=== PATIENT | female | born 1950 | race Caucasian/White ===

== ENCOUNTER → 2017-01-15 | Outpatient (CLI) | payer MEDICARE ==
[~2017-01-15] MED LIST: ASPI-496 PO; ATOR40TA PO; GABA300C10 PO; IBUP800T PO; LEVO75TA5 PO; TYLENOL PO
[2017-01-15 13:46] LABS: BLOOD UREA NITROGEN 18 mg/dL (7-18)
== END | disposition home or self-care (01) ==
LOC: EDSEX 12:24 → STAR 12:24
PROVIDERS: ATTEND Neurological Surgery
DX: Z01.818 Encounter for other preprocedural examination (principal); R94.31 Abnormal electrocardiogram [ECG] [EKG]; J98.4 Other disorders of lung; M48.06 Spinal stenosis, lumbar region
CPT/HCPCS: 36415; 71020; 80048; 85025; 85610; 85730; 93005

== ENCOUNTER 2017-01-23 09:35 | Observation (INO) | payer MEDICARE ==
[~2017-01-23] VITALS: Ht 157.5 cm; Wt 60.7 kg
[~2017-01-23 09:35] MED LIST changes: +BACITRACIN 50,000 UNIT ONE; +BACITRACIN OINT 500U/GM, 15 GM ONE; +BUPIVACAINE/PF 0.5% ONE; +EPINEPHRINE 1 MG/ML, 1ML ONE; +THROMBIN 5,000 UNIT VIAL TP ONE
[2017-01-23 09:53] VITALS: BP 144/84
[2017-01-23] MEDS: LACTATED RINGERS 1,000 ML IV SCH (10:06)
[2017-01-23] MEDS ORDERED: FENTANYL PF 250 MCG/5ML ONE (12:42)
[2017-01-23] MEDS ORDERED: SUCCINYLCHOLINE 20 MG/ML, 10ML ONE (12:57)
[2017-01-23] MEDS ORDERED: ROCURONIUM 10 MG/ML ONE (12:57)
[2017-01-23] MEDS ORDERED: METOCLOPRAMIDE 5 MG/ML, 2ML ONE (12:57)
[2017-01-23] MEDS ORDERED: NEOSTIGMINE 1 MG/ML, 10ML ONE (12:57)
[2017-01-23] MEDS ORDERED: DEXAMETHASONE 4 MG/ML, 1ML ONE (12:57)
[2017-01-23] MEDS ORDERED: ONDANSETRON 2MG/ML, 2ML ONE (12:57)
[2017-01-23] MEDS ORDERED: LIDOCAINE 1%, 10ML ONE (12:57)
[2017-01-23] MEDS ORDERED: GLYCOPYRROLATE 0.2MG/1ML ONE (12:57)
[2017-01-23] MEDS ORDERED: CEFAZOLIN 1,000 MG ONE (12:57)
[2017-01-23] MEDS ORDERED: PROPOFOL 10 MG/ML, 50ML ONE (12:57)
[2017-01-23] MEDS ORDERED: MIDAZOLAM 1 MG/ML, 2ML IV PRN (13:00)
[2017-01-23] MEDS ORDERED: HYDROmorphone 1 MG/ML, 1ML IV PRN (13:00)
[2017-01-23] MEDS ORDERED: hydrALAzine 20 MG/ML, 1ML IV PRN (13:00)
[2017-01-23] MEDS ORDERED: OXYcodone 5 MG/5 ML ORAL.SOL UDC PO PRN (13:00)
[2017-01-23] MEDS ORDERED: MEPERIDINE/PF 25MG/0.5ML IVPush PRN (13:00)
[2017-01-23] MEDS ORDERED: PROMETHAZINE 25 MG/ML, 1ML IV PRN (13:00)
[2017-01-23] MEDS ORDERED: ONDANSETRON 2MG/ML, 2ML IVPush PRN (13:00)
[2017-01-23] MEDS ORDERED: LABETALOL 5MG/ML, 20ML IV PRN (13:00)
[2017-01-23] MEDS ORDERED: OXYcodone 5 MG/5 ML ORAL.SOL UDC ONE (14:04)
[2017-01-23] MEDS ORDERED: FENTANYL PF 100 MCG/2ML ONE ×2 (14:04→15:02)
[2017-01-23] MEDS ORDERED: MIDAZOLAM 1 MG/ML, 2ML ONE (14:04)
[2017-01-23] MEDS: FENTANYL PF 100 MCG/2ML IV PRN ×3 (14:29→15:03)
[2017-01-23 20:00] VITALS: BP 152/70
[2017-01-23] MEDS ORDERED: ATORVASTATIN 40 MG TABLET PO SCH (21:00)
[2017-01-23] MEDS: GABAPENTIN 300 MG CAPSULE PO SCH (22:41)
[2017-01-23] MEDS: ACETAMINOPHEN 500 MG TABLET PO PRN (22:43)
[2017-01-24 04:24] VITALS: BP 125/70
[2017-01-24] MEDS ORDERED: LEVOTHYROXINE 75 MCG TABLET PO SCH (06:00)
[2017-01-24 07:12] VITALS: BP 101/63
[2017-01-24] MEDS: LACTATED RINGERS 1,000 ML IV SCH (08:44)
[2017-01-24] MEDS: GABAPENTIN 300 MG CAPSULE PO SCH (08:49)
[2017-01-24] MEDS: ACETAMINOPHEN 500 MG TABLET PO PRN (08:49)
[2017-01-24] MEDS ORDERED: ONDA-39 PO (11:23)
[2017-01-24] MEDS ORDERED: ONDANSETRON 4 MG TABLET PO PRN (11:30)
[2017-01-24] MEDS ORDERED: ONDA4TAB10 PO (11:38)
== END 2017-01-24 12:50 | disposition home or self-care (01) ==
LOC: EDSEX → OUT 09:35 → 4NOR 18:21 → OUT 18:44 → 4NOR 18:44
PROVIDERS: ADMIT Neurological Surgery; ATTEND Neurological Surgery
DX: M54.17 Radiculopathy, lumbosacral region (principal); M48.07 Spinal stenosis, lumbosacral region; F17.210 Nicotine dependence, cigarettes, uncomplicated
CPT/HCPCS: 63042; 72100; G0378; J0171; J0330; J0690; J1100; J2405; J2704; J2710; J2765; J3010; J3490; J7120